=== PATIENT | male | born 1995 | race Two or more races ===

== ENCOUNTER 2021-11-24 14:10 | Emergency (ER) | payer OTHER ==
[~2021-11-24] VITALS: Ht 177.8 cm; Wt 61.7 kg
[2021-11-24 14:17] VITALS: BP 115/73
[2021-11-24] MEDS ORDERED: DOXY100C2 PO (14:41)
[2021-11-24] MEDS ORDERED: CEFTRIAXONE 500 MG VIAL ONE (14:56)
[2021-11-24] MEDS ORDERED: LIDOCAINE /MPF 1% VIAL 5 ML VIAL ONE (14:57)
[2021-11-24] MEDS ORDERED: CEFTRIAXONE 500 MG VIAL IM ONE (15:00)
--- NOTE | 2021-11-24 15:08 | NUR ---
Patient discharged to home in stable condition. Written and verbal after care instructions given. Patient verbalizes understanding of instruction. Prescription sent electronically.
== END 2021-11-24 15:09 | disposition home or self-care (01) ==
LOC: ER 14:19
DX: R36.9 Urethral discharge, unspecified (principal)
CPT/HCPCS: 99283; 96372; J0696; J3490